=== PATIENT | female | born 1940 | race Caucasian/White ===

== ENCOUNTER 2018-03-25 16:26 | Inpatient (IN) | payer MEDICARE, MEDICAID ==
[~2018-03-25] VITALS: Ht 157.5 cm; Wt 54.4 kg
[2018-03-25] MEDS ORDERED: MAGN400O6 PO (16:35)
[2018-03-25] MEDS ORDERED: ACET325T53 PO (16:35)
[2018-03-25] MEDS ORDERED: DIVA125T2 PO (16:35)
[2018-03-25] MEDS ORDERED: DONE10TA11 PO (16:35)
[2018-03-25 16:50] LABS: BASOPHILS # (AUTO) 0.1 K/uL (0.0-8.0); BASOPHILS % (AUTO) 1.1 % (0.0-2.0); EOSINOPHILS # (AUTO) 0.2 K/uL (0.0-0.7); EOSINOPHILS % (AUTO) 2.3 % (0.0-7.0); HEMATOCRIT 36.8 % (31.2-41.9); HEMOGLOBIN 12.5 g/dL (10.9-14.3); LYMPHOCYTES # (AUTO) 1.9 K/uL (20.0-40.0); LYMPHOCYTES % (AUTO) 23.3 % (20.5-51.5); MEAN CORPUSCULAR HEMOGLOBIN 32.6 uug (24.7-32.8); MEAN CORPUSCULAR HGB CONC 34 g/dL (32.3-35.6); MEAN CORPUSCULAR VOLUME 95.8 fL (75.5-95.3); MONOCYTES # (AUTO) 0.7 K/uL (2.0-10.0); MONOCYTES % (AUTO) 9.2 % (0.0-11.0); NEUTROPHILS # (AUTO) 5.2 K/uL (1.8-8.9); NEUTROPHILS % (AUTO) 64.1 % (38.5-71.5); PLATELET COUNT (AUTO) 270 K/uL (179-408); RED BLOOD CELL COUNT(AUTO) 3.84 MIL/uL (3.63-4.92)
[2018-03-25 16:57] LABS: CARBON DIOXIDE 30 mmol/L (21-32); CHLORIDE 104 mmol/L (98-107); GLUCOSE 126 mg/dL (74-106); POTASSIUM 3.9 mmol/L (3.5-5.1); UREA NITROGEN, BLOOD 17 mg/dL (7-18)
[2018-03-25 16:59] LABS: ETHANOL < 3 MG/DL (0-0)
[2018-03-25 17:10] LABS: ACETAMINOPHEN < 2.0 ug/mL (10-30); ALANINE AMINOTRANSFERASE 29 U/L (14-59); ALKALINE PHOSPHATASE 72 U/L (50-136); ASPARTATE AMINOTRANSFERASE 17 U/L (15-37); BILIRUBIN,DIRECT < 0.1 mg/dL (0.0-0.2); BILIRUBIN,TOTAL 0.3 mg/dL (0.2-1.0); TOTAL PROTEIN, SERUM 7.1 g/dL (6.4-8.2)
--- NOTE | 2018-03-25 17:36 | NUR ---
pt transfered to [facility] in stable condition. ptwas accompanied byone to one sitter. in room. pt calm and comfortable the whole er stay.
[2018-03-25 17:58] LABS: *BILIRUBIN,URIN NEGATIVE (NEGATIVE); *BLOOD, URINE 1+ (NEGATIVE); *COLOR,URINE YELLOW (YELLOW); *KETONES,URINE NEGATIVE (NEGATIVE); *PROTEIN,URINE NEGATIVE (NEGATIVE); *UROBILINOGEN,URINE 0.2 E.U./dl (NORMAL); LEUKOCYTE ESTERASE ,URINE 1+ (NEGATIVE); NITRITE, URINE NEGATIVE (NEGATIVE); UGLUCOSE NEGATIVE (NEGATIVE)
[2018-03-25] MEDS ORDERED: ACETAMINOPHEN 325 MG TABLET PO PRN ×3 (18:00→18:15)
[2018-03-25] MEDS ORDERED: MAG HYDROX/AL HYDROX/SIMETH 30 ML LIQUID UDC PO PRN (18:00)
[2018-03-25] MEDS ORDERED: MAGNESIUM HYDROXIDE 30 ML LIQUID UDC PO PRN ×2 (18:00→18:15)
[2018-03-25] MEDS ORDERED: LORAZEPAM 1 MG TABLET PO PRN (18:00)
[2018-03-25] MEDS ORDERED: TEMAZEPAM 7.5 MG CAPSULE PO PRN (18:00)
[2018-03-25 18:01] LABS: *CLARITY,URINE SLIGHTLY HAZY (CLEAR)
[2018-03-25 18:04] LABS: *AMPHETAMINE, URINE NEGATIVE (NEGATIVE); *BARBITURATE, URINE NEGATIVE (NEGATIVE); *CANNABINOID, URINE NEGATIVE (NEGATIVE); *COCCAINE, URINE NEGATIVE (NEGATIVE); *OPIATE, URINE NEGATIVE (NEGATIVE); *PHENCYCLIDINE SCREEN,URINE NEGATIVE (NEGATIVE)
[2018-03-25 18:07] LABS: MUCUS,URINE MODERATE /LPF (0-FEW); SQUAMOUS EPITHELIAL CELL,UR FEW /HPF (NONE SEEN)
[2018-03-25] MEDS ORDERED: ONDANSETRON ODT 4 MG TAB.RAPDIS SL PRN (18:15)
--- NOTE | 2018-03-25 19:19 | NUR ---
1745 rECEIVED PATIENT FROM ER PER GOURNEY ALERT AND OX2. PLACED O 5150 FOR DTO AND GRAVELY DISABLE PATIENT AGGRESSIVE AND REFUSING CARE AT THE FACILITY. ADMISSION CARE DONE. DR. MCKEON, PSYCHIATRIST AND [facility] MD NOTIFIED.
[2018-03-25 19:30] VITALS: BP 109/51
--- NOTE | 2018-03-26 06:23 | NUR ---
GPS: Remain calm and cooperative with medications and care. tylenol 650 mg po given for pain and effective. slept 9 hrs through the night. continue plan of care.
[2018-03-26 07:30] VITALS: BP 130/59
[2018-03-26] MEDS: PANTOPRAZOLE SODIUM 40 MG TABLET.DR PO SCH (08:04)
[2018-03-26] MEDS ORDERED: DONEPEZIL 10 MG TABLET PO SCH (09:00)
--- NOTE | 2018-03-26 13:30 | NUR ---
PT IS HIGH AWOL RISK. PT STANDING IN FRONT OF DOORS ATTEMPTING TO PUSH OPEN. STATES "I HAVE TO GET OUT OF HERE" OVER AND OVER. FREQUENTLY HAS TO BE MOVED AWAY FROM THE DOORS SO STAFF CAN ENTER/EXIT THROUGH DOORS. PT GRABBED DOOR IT WAS CLOSING WHEN A STAFF MEMBER WAS ENTERING AND ATTEMPTED TO AWOL, STAFF WAS ABLE TO KEEP PT IN UNIT.
--- NOTE | 2018-03-26 14:32 | NUR ---
Initial Discharge Instructions: Patient is a resident at [facility] [[address], [place] [address] ]. Patient was unable to recall where she was living before coming to the hospital. Spoke with patient's sister, Stacey Peace ([phone]) who reports she would like patient to return to [facility]. Spoke with Govind at [facility] who states that the patient will be able to return when stable for discharge. SW will continue to collaborate with pt, family, and MD regarding most appropriate discharge plans for this patient. SW will form a safe and proper discharge plan.
--- NOTE | 2018-03-26 14:37 | NUR ---
Firearms Report: Screen Machine Operator completed and submitted [employer] report for 5150 DTO/GD certifications.
[2018-03-26] MEDS ORDERED: LEVOFLOXACIN 250 MG TABLET PO SCH (16:00)
[2018-03-26 16:19] VITALS: BP 118/45
[2018-03-26] MEDS: NITROFURANTOIN/NITROFURAN MAC 100 MG CAPSULE PO SCH (17:52)
[2018-03-26] MEDS: QUETIAPINE FUMARATE 25 MG TABLET PO SCH ×2 (17:52→20:31)
[2018-03-26 20:00] VITALS: BP 97/44
[2018-03-27] MEDS: PANTOPRAZOLE SODIUM 40 MG TABLET.DR PO SCH (06:11)
[2018-03-27] MEDS: NITROFURANTOIN/NITROFURAN MAC 100 MG CAPSULE PO SCH ×3 (08:56→17:46)
[2018-03-27] MEDS: QUETIAPINE FUMARATE 25 MG TABLET PO SCH ×2 (08:57→20:14)
[2018-03-27 10:25] VITALS: BP 105/54
[2018-03-27 15:54] VITALS: BP 115/56
--- NOTE | 2018-03-27 17:52 | NUR ---
pt refused microbid, pt states "my stomach is unsettled, i don't want it"
[2018-03-27 22:07] VITALS: BP 109/51
[2018-03-28] MEDS: PANTOPRAZOLE SODIUM 40 MG TABLET.DR PO SCH (06:04)
[2018-03-28 07:30] VITALS: BP 118/55
[2018-03-28] MEDS: QUETIAPINE FUMARATE 25 MG TABLET PO SCH ×2 (08:37→20:17)
[2018-03-28] MEDS: NITROFURANTOIN/NITROFURAN MAC 100 MG CAPSULE PO SCH ×2 (08:37→17:15)
[2018-03-28 15:13] VITALS: BP 123/51
[2018-03-28 20:34] VITALS: BP 117/62
[2018-03-29] MEDS: PANTOPRAZOLE SODIUM 40 MG TABLET.DR PO SCH (06:06)
--- NOTE | 2018-03-29 06:21 | NUR ---
GPS: REMAIN CALM AND COOPERATIVE WITH MEDICATIONS AND CARE. SLEPT 8 HRS THROUGH THE NIGHT.NO AGITATION NOTED AT THIS TIME. CONTINUE PLAN OF CARE.
[2018-03-29 07:30] VITALS: BP 110/57
[2018-03-29] MEDS: QUETIAPINE FUMARATE 25 MG TABLET PO SCH ×2 (08:12→20:32)
[2018-03-29] MEDS: NITROFURANTOIN/NITROFURAN MAC 100 MG CAPSULE PO SCH ×2 (08:12→16:05)
[2018-03-29 15:37] VITALS: BP 104/52
[2018-03-29 20:28] VITALS: BP 109/51
[2018-03-30] MEDS: PANTOPRAZOLE SODIUM 40 MG TABLET.DR PO SCH (06:17)
[2018-03-30 07:51] LABS: MAGNESIUM 2.3 mg/dL (1.8-2.4); PHOSPHOROUS 3.8 mg/dL (2.5-4.9)
[2018-03-30 08:30] VITALS: BP 110/55
[2018-03-30] MEDS: NITROFURANTOIN/NITROFURAN MAC 100 MG CAPSULE PO SCH ×2 (08:34→16:51)
[2018-03-30] MEDS: QUETIAPINE FUMARATE 25 MG TABLET PO SCH ×2 (08:34→20:25)
[2018-03-30 08:44] LABS: THYROID STIMULATING HORMONE 3.565 mIU/mL (0.358-3.740)
[2018-03-30 16:40] VITALS: BP 121/49
[2018-03-30 20:34] VITALS: BP 128/51
[2018-03-31] MEDS: PANTOPRAZOLE SODIUM 40 MG TABLET.DR PO SCH (06:19)
[2018-03-31 07:30] VITALS: BP 120/64
[2018-03-31] MEDS: QUETIAPINE FUMARATE 25 MG TABLET PO SCH ×2 (08:26→20:02)
[2018-03-31] MEDS: NITROFURANTOIN/NITROFURAN MAC 100 MG CAPSULE PO SCH ×2 (08:26→17:44)
[2018-03-31 16:56] VITALS: BP 120/54
[2018-03-31 20:11] VITALS: BP 118/52
[2018-04-01] MEDS: PANTOPRAZOLE SODIUM 40 MG TABLET.DR PO SCH (06:26)
[2018-04-01 07:30] VITALS: BP 124/58
[2018-04-01] MEDS: QUETIAPINE FUMARATE 25 MG TABLET PO SCH ×2 (08:30→20:36)
[2018-04-01] MEDS: NITROFURANTOIN/NITROFURAN MAC 100 MG CAPSULE PO SCH ×2 (08:30→16:23)
--- NOTE | 2018-04-01 14:39 | NUR ---
Activity group Note: Patients were asked to participate in a [id number] decorating activity where they decorate their pumpkin and then are asked to share it with the group. Subjective: --- Objective: Patient did not attend. Assessment: Patient needs encouragement to participate in group activity and engage with peers. Plan: front desk worker will encourage group attendance as scheduled. front desk worker will continue to provide emotional support and guidance in he;ping patient become more engaged with activities and peers.
[2018-04-01 19:44] VITALS: BP 101/49
[2018-04-02] MEDS: PANTOPRAZOLE SODIUM 40 MG TABLET.DR PO SCH (07:05)
[2018-04-02 08:00] VITALS: BP 97/42
[2018-04-02] MEDS: QUETIAPINE FUMARATE 25 MG TABLET PO SCH ×2 (08:31→21:27)
[2018-04-02] MEDS: NITROFURANTOIN/NITROFURAN MAC 100 MG CAPSULE PO SCH (08:31)
--- NOTE | 2018-04-02 15:15 | NUR ---
Discharge Planning Note: Box Turner placed call to patient's sister, Stacey Peace ([phone]) to discuss patient's prognosis and inform her of patient's planned DC to [facility] tomorrow (04/03/18). Stacey was aware and agreeable NEISHA faxed updated notes and notified Govind at [facility] of patient's planned DC tomorrow (ph. [phone]; ). Govind aware and states they will be ready to accept the patient tomorrow. NEISHA will continue to follow-up.
[2018-04-02 16:00] VITALS: BP 112/55
[2018-04-02 20:00] VITALS: BP 115/48
[2018-04-02] MEDS ORDERED: ATORVASTATIN 10 MG TABLET PO SCH (21:00)
[2018-04-03] MEDS: PANTOPRAZOLE SODIUM 40 MG TABLET.DR PO SCH (06:45)
[2018-04-03 07:30] VITALS: BP 119/50
[2018-04-03 07:47] LABS: BASOPHILS % (AUTO) 0.7 % (0.0-2.0); EOSINOPHILS # (AUTO) 0.6 K/uL (0.0-0.7); EOSINOPHILS % (AUTO) 10.2 % (0.0-7.0); HEMATOCRIT 35.7 % (31.2-41.9); HEMOGLOBIN 12.2 g/dL (10.9-14.3); LYMPHOCYTES # (AUTO) 0.8 K/uL (20.0-40.0); LYMPHOCYTES % (AUTO) 12.1 % (20.5-51.5); MEAN CORPUSCULAR HEMOGLOBIN 32.8 uug (24.7-32.8); MEAN CORPUSCULAR HGB CONC 34 g/dL (32.3-35.6); MEAN CORPUSCULAR VOLUME 95.7 fL (75.5-95.3); MONOCYTES # (AUTO) 0.6 K/uL (2.0-10.0); MONOCYTES % (AUTO) 10.4 % (0.0-11.0); NEUTROPHILS # (AUTO) 4.1 K/uL (1.8-8.9); NEUTROPHILS % (AUTO) 66.6 % (38.5-71.5); PLATELET COUNT (AUTO) 248 K/uL (179-408); RED BLOOD CELL COUNT(AUTO) 3.73 MIL/uL (3.63-4.92); WHITE BLOOD COUNT (AUTO) 6.2 K/uL (3.8-11.8)
[2018-04-03 07:52] LABS: CARBON DIOXIDE 32 mmol/L (21-32); CHLORIDE 105 mmol/L (98-107); CREATININE 0.9 mg/dL (0.6-1.3); GLUCOSE 87 mg/dL (74-106); POTASSIUM 3.8 mmol/L (3.5-5.1); UREA NITROGEN, BLOOD 24 mg/dL (7-18)
[2018-04-03] MEDS: QUETIAPINE FUMARATE 25 MG TABLET PO SCH (08:11)
--- NOTE | 2018-04-03 09:30 | NUR ---
Discharge Note: Patient will be discharged back to [facility] [[address] [place] [address]; [phone]] via ambulance. Please arrange an ambulance for this patient. Spoke with Govind at the facility who states they are ready to accept the patient today. Spoke with patients sister, Stacey ([phone]) who is aware and agreeable with discharge plans. Patient is alert and oriented x1 and is cooperative. Patient will follow up at the facility with Dr. Hardin (Poultryman) and Dr. Huston (Psychiatrist).
--- NOTE | 2018-04-03 11:25 | NUR ---
PT LEFT UNIT ON [facility] ACCOMPANIED BY 2 SHIRT MARKER. PT CALM AND COOPERATIVE. DENIES SI AND HI. NO AGGRESSIVE OR COMBATIVE BEHAVIOR. DENIES PAIN OR DISCOMFORT. IN NO ACUTE DISTRESS. V/S STABLE. LEFT WITH ALL NOTED BELONGINGS AND PAPERWORK
--- NOTE | 2018-04-03 16:09 | NUR ---
Activity group note: GOAL Patient will actively participate in the group activity of the day or relax in the activity room with fellow patients. INTERVENTION Communications Tower Climber invited patient to participate in a group activity consisting of board games, coloring books, and word puzzles held from 10-10:45 am in the activities room. RESPONSE Patient was asleep when approached to attend the group activity. Patient remained in their room during the group time. PLAN Patient will be invited to attend the next group activity.
== END 2018-04-03 11:25 | DRG 885 ==
LOC: ER 16:27 → GPS 17:22
PROVIDERS: ADMIT Psychiatry & Neurology Psychiatry; ATTEND Hospitalist
DX: F23 Brief psychotic disorder (principal); F03.91 Unspecified dementia, unspecified severity, with behavioral disturbance; G93.40 Encephalopathy, unspecified; N39.0 Urinary tract infection, site not specified; K21.9 Gastro-esophageal reflux disease without esophagitis; G47.00 Insomnia, unspecified; F41.9 Anxiety disorder, unspecified; Z88.0 Allergy status to penicillin; Z91.19 Patient's noncompliance with other medical treatment and regimen; Z91.14 Patient's other noncompliance with medication regimen; Z91.81 History of falling
CPT/HCPCS: 36415; 80307; 83735; 84100; 84443; 85025; 87086; A4663; G0480; G0480-TC